=== PATIENT | female | born 1965 | race Caucasian/White ===

== ENCOUNTER 2024-09-17 16:03 | Outpatient (REF) | payer SELFPAY | END 2024-09-17 16:04 | disposition home or self-care (01) | LOC: HO.HAP 16:03 | PROVIDERS: Visit Provider Nurse Practitioner Adult Health | DX: Z13.89 Encounter for screening for other disorder (principal) ==

== ENCOUNTER 2024-10-15 16:04 | Outpatient (REF) | payer SELFPAY ==
--- NOTE | 2024-10-16 08:13 | MHC.AU.HA3 ---
Hearing Instrument Follow-Up- Binaural Date of Visit: 10/15/24 Right Ear: Make, Model, Color, Serial Number: [employer] OWN 2 IIC, [id number] Diet Kitchen Cook Repair Warranty: 09/03/2027 Diet Kitchen Cook Loss and Damage Warranty: 09/03/2027 [facility] Service Plan: 08/20/2025 Battery Size: 10 Type of Wax Guard: prowax mini Dispensed By: [facility] Date of Fittin08/20/2024 Left Ear: Make, Model, Color, Serial Number: [employer] OWN 2 IIC, [id number] Diet Kitchen Cook Repair Warranty: 09/03/2027 Diet Kitchen Cook Loss and Damage Warranty: 09/03/2027 [facility] Service Plan: 08/20/2025 Battery Size: 10 Type of Wax Guard: prowax mini Dispensed By: [facility] Date of Fittin08/20/2024 Follow-Up Summary: Dispensed remake hearing aids. Sheba returned the ill fitting hearing aids. She reports the remake pair is much more comfortable. Ran feedback management. Returning [id number] and BGZR0S to [employer]. Recommendations: Recommendations: An additional follow-up was scheduled to monitor progress. Diagnosis Code(s): Primary Diagnosis: H90.3 Bilateral Sensorineural Hearing Loss Signature: Provider: Arnie Perdomo, [facility]
== END 2024-10-15 16:05 | disposition home or self-care (01) ==
LOC: HO.HAP 16:04
PROVIDERS: Visit Provider Nurse Practitioner Adult Health
DX: Z13.89 Encounter for screening for other disorder (principal)

== ENCOUNTER 2024-10-30 15:47 | Outpatient (REF) | payer SELFPAY | END 2024-10-30 15:48 | disposition home or self-care (01) | LOC: HO.HAP 15:47 | PROVIDERS: Visit Provider Nurse Practitioner Adult Health | DX: Z13.89 Encounter for screening for other disorder (principal) ==